=== PATIENT | female | born 1960 | race Caucasian/White ===

== ENCOUNTER 2017-10-30 11:57 | Emergency (ER) | payer BC ==
[2017-10-30 12:06] VITALS: BP 132/80
--- NOTE | 2017-10-30 12:23 | UC ---
Lower Extremity/Ankle HPI - HPI Summary HPI Summary: 57-year-old female presents with 2 day history of right knee pain. States this woke her from her sleep 2 nights ago. Pain is constant and located over the right kneecap. Tends to be worse in the evenings. Pain is worsened by ambulation and palpation of the kneecap. Associated with some mild swelling and erythema over the kneecap. She is treated with ice and [id number] ibuprofen with some improvement in symptoms. Denies injury, fever, chills, decrease in range of motion, numbness or tingling, lower extremity edema, calf tenderness or redness. - History of Current Complaint Chief Complaint: UCLowerExtremity Stated Complaint: KNEE PAIN Time Seen by Provider: 10/30/17 12:12 Hx Obtained From: Patient ?: No Onset/Duration: Sudden Onset, Lasting Days - 3 Severity Initially: Moderate Severity Currently: Moderate Pain Intensity: 5 Aggravating Factor(s): Ambulation Alleviating Factor(s): Rest, Ice, OTC Meds Able to Bear Weight: Yes - Risk Factors DVT Risk Factors: Negative Septic Arthritis Risk Factor: Negative - Allergies/Home Medications Allergies/Adverse Reactions: Allergies Allergy/AdvReac Type Severity Reaction Status Date / Time Penicillins Allergy Rash Verified 10/30/17 12:06 PMH/Surg Hx/FS Hx/Imm Hx - Additional Past Medical History Additional PMH: Noncontributory Previously Healthy: Yes - Surgical History Surgical History: None Surgery Procedure, Year, and Place: EAR TUBES 07/2016-PULLED TUBES OUT 1 WEEK LATER - Family History Family History: Noncontributory - Social History Occupation: Employed Full-time Lives: With Family Alcohol Use: Weekly Substance Use Type: None Smoking Status (MU): Heavy Every Day Tobacco Smoker Review of Systems Constitutional: Negative Skin: Other - Localized erythema right knee Respiratory: Negative Cardiovascular: Negative Motor: Negative Neurovascular: Negative Musculoskeletal: Arthralgia - See history of present illness Is Patient Immunocompromised?: No All Other Systems Reviewed And Are Negative: Yes Physical Exam Triage Information Reviewed: Yes Appearance: Well-Appearing, No Pain Distress, Well-Nourished Vital Signs: Initial Vital Signs Temp 98.4 F 10/30/17 12:02 Pulse 87 10/30/17 12:02 Resp 18 10/30/17 12:02 BP 132/80 10/30/17 12:02 Pulse Ox 98 10/30/17 12:02 Vital Signs Reviewed: Yes Respiratory: Positive: No respiratory distress Cardiovascular: Positive: Pulses Normal, Brisk Capillary Refill Musculoskeletal: Positive: Strength Intact, ROM Intact, Edema @ - Mild edema right prepatellar area, Other: - Mild tenderness over the right patella Neurological: Positive: Alert, Other: - Sensation intact. Skin: Positive: Other - Mild erythema in the right prepatellar area Lower Extremity Course/Dx - Course Course Of Treatment: 57-year-old female with three-day history of nontraumatic right knee pain. Exam reveals mild tenderness, erythema, and edema of the right prepatellar region. Suspect this likely represents a prepatellar bursitis. I have very low suspicion of an infectious process. Recommend conservative treatment using naproxen 500 mg twice a day 7 days then as needed , rest of the extremity, and ice. Patient is to follow-up in 7 days with her primary care provider if there is no improvement in symptoms. Verbalizes understanding and agrees with plan of care. - Differential Dx/Diagnosis Differential Diagnosis/HQI/PQRI: Arthritis, DVT, Septic Arthritis, Sprain, Strain, Tendonitis Provider Diagnoses: Prepatellar bursitis right knee, elevated blood pressure reading Discharge - Sign-Out/Discharge Documenting (check all that apply): Patient Departure All imaging exams completed and their final reports reviewed: No Studies - Discharge Plan Condition: Stable Disposition: HOME Prescriptions: Naproxen [Naproxen 500 mg tab] 500 mg PO Q12HR #30 tablet. Patient Education Materials: Knee Bursitis (ED) Referrals: Jose M Harmon MD [Primary Care Provider] - 7 Days (If no improvement. Also need recheck of blood pressure.) Additional Instructions: Start naproxen 1 tab every 12 hours for the next 7 days. After 7 days you may start taking every 12 hours as needed for pain. The aware that he should take this with some food to prevent stomach upset. Rest the knee as much as possible. You may continue to walk and bear weight on this as tolerated. I would recommend avoiding strenuous activities such as running and jumping. Apply ice to the knee for 15-20 minutes 3-4 times a day for the next few days. Make sure you do some gentle range of motion exercises as we discussed at least 3 times a day. Follow-up with your primary care provider in 7 days if there is no improvement in symptoms. Your blood pressure was slightly elevated in the clinic today. You should call and make an appointment with your primary care provider to have this rechecked. Seek immediate medical attention if you develop fever greater than 100.5 F, have increased redness or swelling of the knee, pain that is not managed with your pain medication, any loss of function to the knee, she developed redness, swelling, or calf pain, or have any chest pain or shortness of breath. - Billing Disposition and Condition Condition: STABLE Disposition: Home
== END 2017-10-30 12:50 | disposition home or self-care (01) ==
LOC: UCEAST 11:57
DX: M70.51 Other bursitis of knee, right knee (principal); R03.0 Elevated blood-pressure reading, without diagnosis of hypertension; F17.200 Nicotine dependence, unspecified, uncomplicated; Z88.0 Allergy status to penicillin
CPT/HCPCS: 99212; G0463